=== PATIENT | male | born 1965 | race Caucasian/White ===

== ENCOUNTER 2023-09-27 14:17 | Emergency (ER) | payer OTHER ==
[~2023-09-27] VITALS: Ht 190.5 cm; Wt 84.1 kg
[2023-09-27 14:51] VITALS: BP 130/70; PULSE 65; TEMP 98.2
== END 2023-09-27 14:51 | disposition home or self-care (01) ==
LOC: COL.ER 14:17
DX: Z48.02 Encounter for removal of sutures (principal)